=== PATIENT | male | born 1970 | race Caucasian/White ===

== ENCOUNTER 2020-12-01 10:14 | Outpatient (REF) | payer OTHER, SELFPAY | END 2020-12-01 10:15 | disposition home or self-care (01) | LOC: HO.LAB 10:14 | PROVIDERS: Visit Provider Internal Medicine | DX: Z20.822 Contact with and (suspected) exposure to COVID-19 (principal) | CPT/HCPCS: 36415; C9803; U0003; U0005 ==

== ENCOUNTER 2021-02-16 23:35 | Emergency (ER) | payer OTHER, SELFPAY | END 2021-02-17 01:04 | disposition left against medical advice (07) | LOC: HO.ED 02-17 01:03 | PROVIDERS: Emergency Provider Emergency Medicine | DX: Z71.1 Person with feared health complaint in whom no diagnosis is made (principal) ==

== ENCOUNTER 2021-02-18 21:56 | Emergency (ER) | payer OTHER, SELFPAY ==
--- NOTE | ~2021-02-18 | US_ITS ---
EXAMINATION: US VENOUS ULTRASOUND WITH DOPPLER LOWER EXTREMITY, RIGHT CLINICAL INFORMATION: Pain COMPARISON: None TECHNIQUE: Ultrasound of the deep veins is performed from the hip to the calf with compression sonography and color and pulse Doppler assessment. Spectral analysis with color-flow imaging is performed. FINDINGS: There is normal venous compression and respiratory variation and augmented flow. The visualized common femoral vein, superficial femoral vein, profunda femoral vein, popliteal vein, and the trifurcation region shows no evidence of deep venous thrombosis. There is no significant popliteal fossa cyst. A noncompressible subcutaneous vein in the distal medial calf is suspicious for superficial thrombophlebitis. If the patient's symptoms persist, followup ultrasound in 5 days 7 days might be of value to exclude proximal propagation from a non-visualized calf vein. US/US venous duplex LE RT IMPRESSION: 1. No DVT demonstrated in the right lower extremity. 2. Superficial thrombophlebitis in the distal medial calf.
[2021-02-19] VITALS: BP 139/83; PULSE 54; RESP 18; TEMP 36.3; O2SAT 96; BMI 27.2
[2021-02-19 01:40] VITALS: BP 125/86; PULSE 55; RESP 18; TEMP 36.5; O2SAT 99
--- NOTE | 2021-02-19 03:21 | ED.EXTPRO ---
HPI - Extremity Problem General Chief complaint: Extremity Problem Stated complaint: right let swelling/pain Time Seen by Provider: 02/18/21 23:09 History of Present Illness HPI Narrative: patient is a 50-year-old male status post med during a COVID vaccine on Friday. Presented today with having pain in his right leg since Friday. There was no fever no chills. There is an area of redness in the leg. Patient denies any diaphoresis. No history of the same. No coughing or congestion or upper respiratory symptoms since Friday. Patient had developed a fever right after the initial vaccine. That has subsided 2 days ago. patient complaining of redness and also pain to his right lower extremity. Related Data Previous Rx's Medication Instructions Recorded ibuprofen 400 mg PO Q6H PRN #20 tab 02/19/21 Allergies Allergy/AdvReac Type Severity Reaction Status Date / Time Penicillins [PENICILLINS] Allergy Unknown ANAPHYLACTIC Verified 02/19/21 00:03 SHOCK Review of Systems Review of Systems: Constitutional: No Weight loss, No Fever, No Chills, No Night Sweats, No Fatigue, No Malaise ENT/Mouth: No Hearing loss, No Ear Pain, No Nasal Congestion, No Sinus Pain, No Hoarseness, No sore throat, No Rhinorrhea, No Swallowing Difficulty Eyes: No Eye Pain, No Swelling, No Redness, No Foreign Body, No Discharge, No Vision Changes Cardiovascular: No Chest Pain, No SOB, No Dyspnea on Exertion, No Orthopnea, No Edema, No Palpitations Respiratory: No Cough, No Sputum, No Wheezing, No Smoke Exposure, No Dyspnea Gastrointestinal: No Nausea, No Vomiting, No Diarrhea, No Constipation, No abdominal Pain, No Hematochezia, No Melena Genitourinary: no irregular bleeding, No Dysuria, No Urinary Frequency, No Hematuria, No Urinary Incontinence, No Urgency, No Flank Pain, No Urinary Flow Changes, No Hesitancy Musculoskeletal: No joint pain, No Myalgias, No Joint Swelling Skin: No Skin Lesions, No rash Neuro: No Weakness, No Numbness, No Paresthesias, No Loss of Consciousness, No Dizziness, No Headache Psych: No Anxiety/Panic, No Depression, No SI/HI/AH/VH, No Social Issues, Heme/Lymph: No Bruising, No Bleeding,No Lymphadenopathy Endocrine: No Polyuria, No Polydipsia, No Temperature Intolerance [facility] Past Medical History Attestation statement: The following information was validated with the patient. Social History Social History Advance Directives: No Physical Exam Vital Signs: Vital Signs: Last Vital Signs Temp 97.7 F 02/19/21 01:40 Pulse 55 02/19/21 01:40 Resp 18 02/19/21 01:40 BP 125/86 02/19/21 01:40 Pulse Ox 99 02/19/21 01:40 Body Mass Index 27.2 Appearance: Alert. Oriented X3. No acute distress. Eyes: Pupils equal, round and reactive to light. ENT: Pharynx normal. Neck: Normal inspection. Neck supple. No lymph nodes noted. No crepitus CVS: Normal heart rate and rhythm. Pulses normal. Normal S1 and S2 Respiratory: No respiratory distress. Breath sounds normal. No Wheezing. No rales Abdomen: Soft and nontender. No rigidity. No distention. good BS x4 Skin: Skin warm and dry. Normal skin color. Normal skin turgor. Extremities: No lower extremity edema. Neurovascular intact to all extremities. No Lacerations. No Rash Neuro: Oriented X 3. No motor deficit. No sensory deficit. Moving all extermities. No slurred speech MDM - Extremity (Nontraumatic) MDM Narrative Medical decision making narrative: Patient's labs are unremarkable. Ultrasound did not show any evidence of DVT. There is evidence for thrombophlebitis in the distal calf. Will ask patient to use NSAID. Warm soak. Close follow-up on an outpatient basis. In stable condition. Patient also received the med during a vaccine. Less likely patient has DVT. In the setting of negative ultrasound. The superficial thrombophlebitis was less than 5 cm in size. Fairly distal. Not near a major deep vessel. Lab Data Result diagrams: 02/19/21 03:21 02/19/21 03:21 Labs: Lab Results 02/19/21 02/19/21 Range/Units 03:21 03:21 WBC 6.8 (4.8-10.8) X10*3/uL RBC 4.51 L (4.60-5.80) X10*6/uL Hgb 15.0 (14.0-18.0) g/dl Hct 43.3 (42-52) % MCV 96.0 (80-98) fL MCH 33.3 H (27.0-33.0) pg MCHC 34.6 (31.0-36.0) g/dl RDW 11.9 (11.0-16.0) % Plt Count 240 (160-400) X10*3/uL MPV 10.0 (9.4-12.4) fL Immature Gran % (Auto) 0.1 (0.0-0.4) % Neut % (Auto) 46.1 (45-73) % Lymph % (Auto) 41.6 H (20-40) % Early % (Auto) 7.7 (2-11) % Eos % (Auto) 3.5 (0-4) % Baso % (Auto) 1.0 (0-2) % Lymph # (Auto) 2.8 (1.2-4.9) X10*3/uL Early # (Auto) 0.5 (0.1-1.2) X10*3/uL Eos # (Auto) 0.2 (0.0-0.4) X10*3/uL Baso # (Auto) 0.1 (0.0-0.2) X10*3/uL Abs Immat Gran (auto) 0.01 (0.00-0.03) X10*3/uL Absolute Neuts (auto) 3.1 (2.0-8.3) X10*3/uL Absolute Nucleated RBC 0.000 (0.0-0.012) X10*3/uL Nucleated RBC % (auto) 0.0 (0.0-0.2) /100WBC Sodium 140 (135-145) mmol/L Potassium 4.4 (3.3-5.1) mmol/L Chloride 101 (96-108) mmol/L Carbon Dioxide 30 H (22-29) mmol/L Anion Gap 13 (12-20) BUN 11 (9-16) mg/dL Creatinine 0.91 (0.5-1.4) mg/dL Estim Creat Clear Calc 99.1 Estimated GFR > 60 Random Glucose 99 (60-115) mg/dL Calcium 9.7 (8.4-10.2) mg/dL Total Bilirubin 0.6 (0.0-1.0) mg/dL AST 32 (5-37) U/L ALT 60 H (0-40) U/L Alkaline Phosphatase 84 (39-117) U/L Total Protein 6.4 L (6.5-8.0) g/dL Albumin 4.1 (3.5-5.0) g/dL Discharge Plan Discharge Clinical Impression: Superficial thrombophlebitis Patient Disposition: Home, Self-Care Instructions: Superficial Thrombophlebitis (ED) Prescriptions: New ibuprofen 400 mg tablet 400 mg PO Q6H PRN (Reason: pain) Qty: 20 RF: 0 Referrals: [facility] [Primary Care Provider] - 2 days
[2021-02-19 03:25] LABS: Basophils Absolute Auto 0.1 X10*3/uL (0.0-0.2); Eosinophils Absolute Auto 0.2 X10*3/uL (0.0-0.4); Eosinophils Percent Auto 3.5 % (0-4); Hematocrit 43.3 % (42-52); Imm Gran Abs Auto 0.01 X10*3/uL (0.00-0.03); Imm Gran Pct Auto 0.1 % (0.0-0.4); Lymphocytes Absolute Auto 2.8 X10*3/uL (1.2-4.9); Lymphocytes Percent Auto 41.6 % (20-40); MANUAL DIFF FLAG NO; Mean Corpuscular HGB Conc 34.6 g/dl (31.0-36.0); Mean Corpuscular Hemoglobin 33.3 pg (27.0-33.0); Monocytes Absolute Auto 0.5 X10*3/uL (0.1-1.2); Monocytes Percent Auto 7.7 % (2-11); Neutrophils Absolute Auto 3.1 X10*3/uL (2.0-8.3); Neutrophils Percent Auto 46.1 % (45-73); Platelet Count 240 X10*3/uL (160-400); Red Blood Count 4.51 X10*6/uL (4.60-5.80); Red Cell Distribution Width 11.9 % (11.0-16.0); White Blood Count 6.8 X10*3/uL (4.8-10.8)
[2021-02-19 03:53] LABS: Alanine Aminotransferase 60 U/L (0-40); Albumin Level 4.1 g/dL (3.5-5.0); Alkaline Phosphatase 84 U/L (39-117); Anion Gap 13 (12-20); Aspartate Amino Transferase 32 U/L (5-37); Bilirubin Total 0.6 mg/dL (0.0-1.0); Blood Urea Nitrogen 11 mg/dL (9-16); Calcium 9.7 mg/dL (8.4-10.2); Carbon Dioxide 30 mmol/L (22-29); Chloride 101 mmol/L (96-108); Creatinine Clr Calc Pharmacy 99.1; Estimated Glomerular Filt Rate > 60; Glucose Random 99 mg/dL (60-115); Potassium 4.4 mmol/L (3.3-5.1); Sodium 140 mmol/L (135-145); Total Protein 6.4 g/dL (6.5-8.0)
== END 2021-02-19 06:42 | disposition home or self-care (01) ==
PROVIDERS: Emergency Provider Emergency Medicine Emergency Medical Services
DX: I80.01 Phlebitis and thrombophlebitis of superficial vessels of right lower extremity (principal); M79.604 Pain in right leg
CPT/HCPCS: 36415; 80053; 85025; 93971; 99283; 99284

== ENCOUNTER 2021-05-01 07:57 | Outpatient (REF) | payer OTHER, SELFPAY ==
--- NOTE | ~2021-05-01 | US_ITS ---
EXAMINATION: US COMPLETE ABDOMEN WITH LIVER ELASTOGRAPHY CLINICAL INFORMATION: Abnormal LFTs. COMPARISON: None. TECHNIQUE: Real-time imaging of the abdominal viscera. Noninvasive ultrasound liver fibrosis assessment is performed using Delio ElastPQ point quantification shear wave elastography (pSWE) with a C5-2 MHz transducer. Multiple elastography samples are obtained. FINDINGS: PANCREAS: Visualized portions unremarkable. The tail is partially obscured by bowel gas shadowing. ABDOMINAL AORTA: Visualized portions unremarkable. INFERIOR VENA CAVA: Visualized portions unremarkable. LIVER: Diffuse increased echotexture without focal abnormality. The right lobe measures 14.9 cm in length. The left lobe measures 13.5 cm in length. Portal flow is hepatopedal. Shear wave liver elastography median stiffness is 1.28 m/s (reference: normal median stiffness is 1.3 m/s or less). IQR/median stiffness to assess sampling precision is 0.15 (reference: good quality data set is IQR/median stiffness of 0.15 or less). GALLBLADDER: Unremarkable. COMMON BILE DUCT: Normal in caliber measuring 0.5 cm in diameter. RIGHT KIDNEY: 12.0 cm. Unremarkable. LEFT KIDNEY: 11.2 cm. An anechoic cyst the upper pole measures 2.0 cm. Color Doppler showed no abnormal vascular flow. SPLEEN: 13.5 cm. Unremarkable. FREE FLUID: None. US/US abdomen comp w elastography IMPRESSION: 1. Hepatic steatosis without focal abnormality. 2. Liver elastography: High probability normal with adequate sampling. 3. Small right upper pole renal cyst demonstrates benign features. 4. Spleen is at the upper limits of normal in size. REFERENCE: Society of Radiologists in Ultrasound Liver Stiffness Thresholds (2020): LIVER STIFFNESS THRESHOLDS: *Liver Stiffness equal or less than 1.3 m/s: High probability of being normal. *Liver Stiffness less than 1.7 m/s: In the absence of other known clinical signs, rules out compensated advanced chronic liver disease. *Liver Stiffness 1.7-2.1 m/s: Suggestive of compensated advanced chronic liver disease but need further test for confirmation. *Liver Stiffness over 2.1 m/s: Rules in compensated advanced chronic liver disease. *Liver Stiffness over 2.4 m/s: Suggestive of clinically significant portal hypertension. QUALITY OF DATA SET: *IQR/Median value equal or less than 0.15 implies a quality data set. *IQR/Median value over 0.15 implies a poor quality data set. SIGNIFICANT CHANGE FROM PRIOR EXAM: Significant change if liver stiffness measurement is 10% or greater from prior exam. OTHER CONSIDERATIONS: The stage of liver fibrosis may be overestimated in the setting of acute hepatitis, liver inflammation, elevated liver function tests, hepatic vascular congestion, obstructive cholestasis, non-fasting state, and infiltrative diseases such as amyloidosis and lymphoma. In some patients with NAFLD, the liver stiffness thresholds for compensated advanced chronic liver disease may be lower. In causes other than viral hepatitis and NAFLD, liver stiffness thresholds are not well established.
== END 2021-05-01 07:58 | disposition home or self-care (01) ==
LOC: HO.US 07:57
PROVIDERS: PCP Emergency Medicine; Visit Provider Internal Medicine
DX: R94.5 Abnormal results of liver function studies (principal)
CPT/HCPCS: 76705; 76981

== ENCOUNTER → 2021-05-30 10:33 | Outpatient (BNVA) | payer OTHER, SELFPAY | PROVIDERS: PCP Emergency Medicine; Referring Provider Internal Medicine; Visit Provider Physician Assistant | DX: Z12.11 Encounter for screening for malignant neoplasm of colon (principal) | CPT/HCPCS: 99202 ==

== ENCOUNTER → 2021-08-01 14:03 | Outpatient (BNVA) | payer OTHER, SELFPAY | PROVIDERS: Visit Provider Urology | DX: E29.1 Testicular hypofunction (principal) | CPT/HCPCS: 99202 ==

== ENCOUNTER 2021-08-13 06:49 | Day surgery (SDC) | payer OTHER, SELFPAY ==
--- NOTE | 2021-08-10 09:33 | P.CONAN_ITS ---
Documented by User: Fany Christie NP 08/10/21 09:35 HPI - Anesthesia Eval Consult details Narrative: 50yo M for Colonoscopy Methadone daily - h/o IVDA PMFSH Active Problems Active Problems: All Active Problems (Updated 08/06/21 @ 15:53 by Yolanda Ramirez, MARIA LUISA) Encounter for screening colonoscopy (Acute) Hypogonadism in male (Acute) Past Medical History Medical History Elevated cholesterol History of chronic back pain History of heroin abuse HTN (hypertension) Hypogonadism male Smoker Family History Family History Father HTN (hypertension) Paternal Grandmother HTN (hypertension) Diabetes Social History Social History (Updated 08/13/21 @ 08:18 by Ashely Sahni MD) Household Members Other:: has 3 adult children Alcohol intake: current Patient Tobacco Use Status: Current everyday Tobacco user Tobacco use type: Cigarette Cigarettes Per Day: 20 Years Smoked: 30 Smoked in Last 30 Days: Yes Advance Directives: No Advance Directives Information Provided: Yes Current occupational status: employed Meds Allergies Allergy/AdvReac Type Severity Reaction Status Date / Time Penicillins [PENICILLINS] Allergy Unknown ANAPHYLACTIC Verified 08/01/21 14:20 SHOCK Home Medications Medication Instructions Recorded Confirmed Last Taken Type atorvastatin 20 mg tablet 20 mg PO DAILY 05/30/21 08/06/21 Unknown History chlorthalidone 25 mg tablet 25 mg PO DAILY 05/30/21 08/06/21 Unknown History methadone 10 mg/mL oral concentrate 105 mg PO DAILY ml 05/30/21 08/06/21 Unknown History lidocaine 5 % topical patch 1 patch TOPICAL DAILY 08/06/21 08/06/21 Unknown History Exam Exam Date and Time: August 10, 2021 0933 Pertinent Lab Results Pertinent Lab Results: Laboratory Tests 02/19/21 02/19/21 03:21 03:21 WBC 6.8 Hgb 15.0 Hct 43.3 Plt Count 240 Sodium 140 Potassium 4.4 Chloride 101 Carbon Dioxide 30 H BUN 11 Creatinine 0.91 Assessment and Plan Assessment Anesthesia Assessment: Chart Reviewed Documented by User: Ashely Sahni MD 08/13/21 08:23 HPI - Anesthesia Eval Consult details Narrative: 50yo M for Colonoscopy Methadone daily - h/o IVDA. Last dose of methadone evening 08/12/21 [facility] Past Medical History Medical History Elevated cholesterol History of chronic back pain History of heroin abuse HTN (hypertension) Hypogonadism male Smoker Family History Family History Father HTN (hypertension) Paternal Grandmother HTN (hypertension) Diabetes Family history of problems with anesthesia: No Surgical History History of Problems with Anesthesia: No (Never had anesthesia ) Social History Social History (Updated 08/13/21 @ 08:18 by Ashely Sahni MD) Household Members Other:: has 3 adult children Alcohol intake: current Patient Tobacco Use Status: Current everyday Tobacco user Tobacco use type: Cigarette Cigarettes Per Day: 20 Years Smoked: 30 Smoked in Last 30 Days: Yes Advance Directives: No Advance Directives Information Provided: Yes Current occupational status: employed Meds Allergies Allergy/AdvReac Type Severity Reaction Status Date / Time Penicillins [PENICILLINS] Allergy Unknown ANAPHYLACTIC Verified 08/01/21 14:20 SHOCK Home Medications Medication Instructions Recorded Confirmed Last Taken Type atorvastatin 20 mg tablet 20 mg PO DAILY 05/30/21 08/06/21 Unknown History chlorthalidone 25 mg tablet 25 mg PO DAILY 05/30/21 08/06/21 Unknown History methadone 10 mg/mL oral concentrate 105 mg PO DAILY ml 05/30/21 08/06/21 Unknown History lidocaine 5 % topical patch 1 patch TOPICAL DAILY 08/06/21 08/06/21 Unknown History Exam Height,Weight and Vital Signs: Height 5 ft 11 in Weight 90.718 kg Vital Signs Temp Pulse Resp BP Pulse Ox 08/13/21 07:42 98.8 F 74 16 151/97 H 96 Airway Mallampati Class: II TM Dist: >3cm Neck ROM: Full Denture: Upper Loose/Missing/Broken Teeth: Yes (No teeth bottom) Heart: RRR Lungs: CTAB Other: Sats 92-93 @ baseline. Increase to 98% with deep breathing Assessment and Plan Assessment Anesthesia Assessment: Anesthesia Plan Discussed Final Anesthetic Review Family History of Problems with Anesthesia: No History of Problems with Anesthesia: No (Never had anesthesia ) NPO: Yes ASA Class: II Final Preanesthetic Review: No Changes in Pt Med Stat, Meds/Allgs Chart Reviewed, Consent Obtained/Reviewed and Anes Risks/Benef Reviewed Patient Risk: Low Procedure Risk: Low Assessment/Block/Sedation in SS: Assess/Block/Sedation-SS Anesthetic Plan Anesthetic Plan: MAC: Disposition: Standard PACU
[2021-08-13 07:18] VITALS: BMI 27.8
[2021-08-13 07:42] VITALS: BP 151/97; PULSE 74; RESP 16; TEMP 37.1; O2SAT 96
[2021-08-13] MEDS: Lactated Ringers 1,000 ML 100 ML IVCONT (07:44)
--- NOTE | 2021-08-13 07:47 | PC.NURSE ---
pt unable to rremove 2 rings. knuckles swollen. attempt 2x. pt aware of risk of burn
--- NOTE | 2021-08-13 08:00 | MHC.SHP ---
Pre-Procedural Eval Section A Date of Service: 08/13/21 The patient is an INPATIENT: No The History & Physical has been completed within 30 days and I have reviewed it.: No Section B Chief Complaint: Screening Details of Present Illness: Colon cancer screening Relevant Family History (Specify if Yes): No Relevant Social History: Tobacco Use Present Medications: see Short Stay Collaborative assessment Medical History: Significant History (Hypertension, elevated cholesterol, chronic back pain) History of Previous Operations: No relevant previous surgery Allergies: Allergies Allergy/AdvReac Type Severity Reaction Status Date / Time Penicillins [PENICILLINS] Allergy Unknown ANAPHYLACTIC Verified 08/01/21 14:20 SHOCK Review of Systems Sugical H&P ROS: Negative: Constitution, Cardiovascular, Respiratory and Gastrointestinal Exam Surgical H&P Exam: Normal: Heart, Normal: Lungs, Normal: Extremities and Normal: Abdomen Plan Diagnosis/Plan: Unchanged I have reviewed the history and physical and performed a pertinent physical examination on my patient. No changes have occurred unless specified.
--- NOTE | 2021-08-13 08:02 | P.OP_ITS ---
Operative Note Operative Note Date of Service: 08/13/21 Narrative: Pre-op diagnosis:?Colon cancer screening Post-op diagnosis:?other (Colon polyps, diverticulosis) Procedure:? COLONOSCOPY TILL CECUM WITH SNARE POLYPECTOMY Consent: Indications for the procedure and potential complications of bleeding, perforation, reaction to medications and missed diagnosis were discussed with the patient and informed consent was obtained. Instrument: Olympus PCF H 190 L variable stiffness pediatric colonoscope Monitoring: Vital signs and clinical assessment, intermittent blood pressure monitoring, continuous EKG monitoring, Pulse oximetry and Carbon Dioxide monitoring were done throughout the procedure. Colon withdrawl time was 26 minutes. Procedure: The patient was placed in the left lateral decubitis position and pre-procedure medications were administered. After a digital rectal examination of the ano-rectum, the video colonoscope was inserted into the rectum and advanced through the colon to the cecum. The colonoscope was slowly withdrawn in a retrograde panoramic fashion and the colon mucosa was carefully examined including a retroflexed view of the rectum. Findings and interventions are described below. Procedure Difficulty: Without difficulty.? There was excessive spasm in the left colon. Findings: Terminal Ileum: Not evaluated Cecum:? Normal Ascending Colon:? Normal Transverse Colon:? Normal Descending Colon:? Normal Sigmoid Colon:? Two 8 to 10 mm sessile polyps in the rectosigmoid removed with a cold snare. Moderate diverticulosis Rectum:? Normal Ano-rectum:? Normal Colon preparation:? Good after some irrigation Impression and Post Procedure Diagnosis: Colonoscopy Findings: Two medium sized polyps removed Moderate diverticulosis seen in the sigmoid colon Plan: Await pathology results Patient has an appointment on 08/28/21 in the GI [facility] with MICHAEL Robin. Repeat Colonoscopy interval based on path results - in 3 years if polyps are adenomatous and 10 years if polyps are hyperplastic. Colon polyps and diverticulosis handouts were given in the discharge area Surgeon:?Rosemary Rojas MD Anesthesia:?MAC (Melba Richards CRNA) Was an Smalltalk Developer used for this Procedure?:?Yes Smalltalk Developer:?Jenna Harmon Estimated blood loss (mL):?0 Pathology:?other (A. sigmoid polyps (2)) Condition:?stable Disposition:?PACU
[2021-08-13 09:14] VITALS: BP 96/58; PULSE 62; RESP 16; TEMP 36.5; O2SAT 94
[2021-08-13 09:30] VITALS: BP 147/100; PULSE 66; RESP 18; TEMP 36.2; O2SAT 96
== END 2021-08-13 09:44 | disposition home or self-care (01) ==
PROVIDERS: PCP Emergency Medicine; Visit Provider Internal Medicine Gastroenterology
PROC: 0DJD8ZZ Inspection of Lower Intestinal Tract, Via Natural or Artificial Opening Endoscopic (ICD-10-PCS; CPT 45378; principal; 2021-08-13 08:30)
DX: Z12.11 Encounter for screening for malignant neoplasm of colon (principal); D12.5 Benign neoplasm of sigmoid colon; K57.30 Diverticulosis of large intestine without perforation or abscess without bleeding; I10 Essential (primary) hypertension; E78.00 Pure hypercholesterolemia, unspecified; G89.29 Other chronic pain; M54.9 Dorsalgia, unspecified; F17.210 Nicotine dependence, cigarettes, uncomplicated; Z79.899 Other long term (current) drug therapy; F11.20 Opioid dependence, uncomplicated; Z88.0 Allergy status to penicillin
CPT/HCPCS: 45385; 88305

== ENCOUNTER 2022-04-05 08:42 | Emergency (ER) | payer SELFPAY ==
--- NOTE | 2022-04-05 09:00 | ED.CPR ---
HPI - CPR General Chief Complaint: Cardiac Arrest/CPR Stated Complaint: Cardiac Arrest Time Seen by Provider: 04/05/22 08:55 History of Present Illness HPI narrative: 0858: called 0900: in waiting area 0911: [facility] accepted by Jaime Leslie with case # [id number] History is a combination of EMS and reported by , states that her got up hurriedly this morning as he was late for work and went into the bathroom and then came out in set at the edge of the bed, states that she asked if he had for fallen while he was in the bathroom and he acknowledges that he had and then states that he became unresponsive and fell to the floor. The [id number] states that she called out for him in the called EMS. BLS arrived as per EMS and administered an initial a ED shock. ALS providers arrived and placed a Mahesh tube as well as an IO in the right humerus and commenced with ACLS protocol with 4 rounds of epi. As per EMS patient was asystole the entire time. Related Data Home Medications Medication Instructions Recorded Confirmed atorvastatin 20 mg tablet 20 mg PO DAILY 05/30/21 08/06/21 chlorthalidone 25 mg tablet 25 mg PO DAILY 05/30/21 08/06/21 methadone 10 mg/mL oral concentrate 105 mg PO DAILY 05/30/21 08/06/21 lidocaine 5 % topical patch 1 patch topical DAILY 08/06/21 08/06/21 Previous Rx's Medication Instructions Recorded ibuprofen 400 mg tablet 400 mg PO Q6H PRN pain #20 tabs 02/19/21 testosterone 30 mg/actuation (1.5 2 pump topical DAILY 30 days #90 mL 08/01/21 mL) transderm solution metered pump Allergies Allergy/AdvReac Type Severity Reaction Status Date / Time Penicillins [PENICILLINS] Allergy Unknown ANAPHYLACTIC Verified 08/01/21 14:20 SHOCK Review of Systems Review of Systems: Yes unobtainable due to endotracheal tube PMFSH Past Medical History Source: nursing notes reviewed Medical History Elevated cholesterol History of chronic back pain History of heroin abuse HTN (hypertension) Hypogonadism male Smoker Family History Family History Father HTN (hypertension) Paternal Grandmother HTN (hypertension) Diabetes Social History Social History Household Members Other:: has 3 adult children Alcohol intake: current Patient Tobacco Use Status: Current everyday Tobacco user Tobacco use type: Cigarette Cigarettes Per Day: 20 Years Smoked: 30 Advance Directives: No Advance Directives Information Provided: No Current occupational status: employed Physical Exam Vital Signs: Vital Signs: CPR in progress, Mahesh tube in place with easy ventilation, IO in place in right humerus. Evaluation pupils were dilated and nonreactive with patient showing central cyanosis and asystole without pulses. Bedside ultrasound demonstrated no cardiac activity. Course Course Course Narrative: 51-year-old male with history and clinical presentation for cardiac arrest with unknown etiology. Please review the CPR code sheet for details. Patient was asystole the entire time, he did receive both Narcan as well as bicarb, bedside ultrasound did not show any cardiac activity and time of was called at 08:53. Patient has been accepted by both the organ donor system as well as [facility]. Next of kin was notified in person. Critical Care Time Critical Care Time Critical Care Time: Yes Total Critical Care Time: 30 Attestation: I personally attest to this time spent taking care of the patient. Discharge Plan Discharge Clinical Impression: Cardiac arrest Patient Disposition: Prescriptions: No Action ibuprofen 400 mg tablet 400 mg PO Q6H PRN (Reason: pain) Qty: 20 0RF lidocaine 5 % adhesive patch,medicated 1 patch topical DAILY methadone 10 mg/mL concentrate 105 mg PO DAILY atorvastatin 20 mg tablet 20 mg PO DAILY chlorthalidone 25 mg tablet 25 mg PO DAILY testosterone 30 mg/actuation (1.5 mL) solution in metered pump w/maria c 2 pump topical DAILY 30 Days Qty: 90 1RF Rx Instructions: apply 1 dose/pump to ONE underarm area; 1 doses/pumps to OTHER underarm area
--- NOTE | 2022-04-05 09:34 | PC.NURSE ---
accepted by medical imaging specialist
[2022-04-05 14:11] LABS: Glucose, Whole Blood 410 mg/dL (60-115)
--- NOTE | 2022-04-05 21:39 | PC.NURSE ---
THIS US FAXED OVER CHART TO [facility] @[phone] TO
== END 2022-04-05 11:47 | disposition expired ==
PROVIDERS: Emergency Provider Student in an Organized Health Care Education/Training Program
DX: I46.9 Cardiac arrest, cause unspecified (principal); E78.5 Hyperlipidemia, unspecified; I10 Essential (primary) hypertension; F11.20 Opioid dependence, uncomplicated; F17.210 Nicotine dependence, cigarettes, uncomplicated
CPT/HCPCS: 82947; 96374; 96375; 99283; 99285; J0171